=== PATIENT | male | born 1940 | race Caucasian/White ===

== ENCOUNTER 2018-02-28 03:06 | Observation (INO) | payer MEDICARE ==
[2018-02-28] VITALS (14 sets, daily range): BP systolic 137–184; BP diastolic 65–108; PULSE 62–81; RESP 16–20; TEMP 97.4–97.9; O2SAT 94–100
[~2018-02-28] VITALS: Ht 182.9 cm; Wt 84.1 kg
--- NOTE | 2018-02-28 03:29 | PD ---
HPI Chief Complaint: Chest Pain Time Seen by Provider: 03:09 Travel History International Travel<30 days: No Contact w/Intl Traveler<30days: No Traveled to known affect area: No History of Present Illness HPI Patient is a 78-year-old male on vacation in [facility] from [facility] patient awoke tonight nauseous vomiting chest pressure he says I do not have pain I does have chest pressure and vomiting nausea paramedics found him to be very hypertensive systolic over 200 they gave him sublingual nitro and Zofran which relieved his vomiting symptoms as well as brought his pressure down on arrival he is 180/90 in our ER. He denies chest pain again but says chest pressure which right now is much less than. He took one baby aspirin today which is his normal dose he takes lisinopril for blood pressure in the ER his complaint is low substernal chest pressure nausea all began less than an hour ago on awakening from sleep. He denies viral syndrome he went to bed feeling fine he did not have any complaints he did have a heavy meal of spicy ribs and excessive food prior to going to sleep he reports about 3 hours prior to sleep. PFSH Past Medical History High Cholesterol: Yes GERD: Yes Hypertension: Yes Medical other: Yes (bph ) Past Surgical History Tonsillectomy: Yes Other Surgery: Yes (vasectomy) Social History Alcohol Use: Yes (daily) Tobacco Use: No Substance Use: No Allergies-Medications (Allergen,Severity, Reaction): Coded Allergies: No Known Allergies (Unverified , 02/28/18) Reported Meds & Prescriptions Reported Meds & Active Scripts Active Reported Gas-X Ultra Strength (Simethicone) 180 Mg Cap 125 Mg PO DAILY PRN Aspirin 81 Mg Chew 81 Mg CHEW DAILY Prilosec (Omeprazole Magnesium) 20 Mg Tab Aleve Arthritis (Naproxen Sodium) 220 Mg Tab 220 Mg PO DAILY Multi-Vitamin Daily (Multiple Vitamin) 1 Tab Tab 1 Tab PO DAILY Tamsulosin (Tamsulosin HCl) 0.4 Mg Cap 0.4 Mg HS Dutasteride 0.5 Mg Cap 0.5 Mg PO DAILY Lovastatin 40 Mg Tab 40 Mg PO DAILY Atenolol 25 Mg Tab 25 Mg PO BID Lisinopril 10 Mg Tab 15 Mg PO DAILY Review of Systems Except as stated in HPI: all other systems reviewed are Neg Physical Exam Narrative GENERAL: pt slightly diaphoretic SKIN: Warm and dry. HEAD: Atraumatic. Normocephalic. EYES: Pupils equal and round. No scleral icterus. No injection or drainage. ENT: No nasal bleeding or discharge. Mucous membranes pink and moist. NECK: Trachea midline. No JVD. CARDIOVASCULAR: Regular rate and rhythm. RESPIRATORY: No accessory muscle use. Clear to auscultation. Breath sounds equal bilaterally. GASTROINTESTINAL: Abdomen soft, non-tender, nondistended. Hepatic and splenic margins not palpable. MUSCULOSKELETAL: Extremities without clubbing, cyanosis, or edema. No obvious deformities. NEUROLOGICAL: Awake and alert. No obvious cranial nerve deficits. Motor grossly within normal limits. Five out of 5 muscle strength in the arms and legs. Normal speech. PSYCHIATRIC: Appropriate mood and affect; insight and judgment normal. Data Data Last Documented VS Vital Signs Date Time Temp Pulse Resp B/P (MAP) Pulse Ox O2 Delivery O2 Flow Rate FiO2 02/28/18 04:45 62 18 184/84 (117) 98 Nasal Cannula 2.00 02/28/18 03:10 97.9 Orders Orders Complete Blood Count With Diff (02/28/18 03:17) Comprehensive Metabolic Panel (02/28/18 03:17) Ckmb (Isoenzyme) Profile (02/28/18 03:17) Troponin I (02/28/18 03:17) Lipase (02/28/18 03:17) Chest, Single Ap (02/28/18 03:17) Aspirin Chew (Aspirin Chew) (02/28/18 03:30) Nitroglycerin 2% Oint (Nitroglycerin 2% (02/28/18 03:30) Metoprolol Tartrate Inj (Lopressor Inj) (02/28/18 03:30) Pantoprazole Inj (Protonix Inj) (02/28/18 03:30) Ondansetron Inj (Zofran Inj) (02/28/18 03:30) Metoclopramide Inj (Reglan Inj) (02/28/18 04:45) Morphine Inj (Morphine Inj) (02/28/18 05:00) Admit Order (Ed Use Only) (02/28/18 05:05) Place In Observation (02/28/18 05:06) Activity Bed Rest With Brp (02/28/18 05:06) Vital Signs (Adult) Q4H (02/28/18 05:06) Cardiac Rhythm .As Directed (02/28/18 05:06) Notify Dr: Other .PRN (02/28/18 05:06) Notify Dr. Parameters (02/28/18 05:06) Resp Oxygen Nasal Cannula (02/28/18 ) Ckmb (Isoenzyme) Profile (02/28/18 05:06) Ckmb (Isoenzyme) Profile (02/28/18 08:06) Troponin I (02/28/18 05:06) Troponin I (02/28/18 08:06) Electrocardiogram (02/28/18 05:06) Electrocardiogram (02/28/18 08:06) ^ Obtain (02/28/18 05:06) Sodium Chloride 0.9% Flush (Ns Flush) (02/28/18 05:15) Sodium Chloride 0.9% Flush (Ns Flush) (02/28/18 09:00) Digital Production Artist / Telemetry [email or web address] (02/28/18 05:06) Labs Laboratory Tests Test 02/28/18 03:32 White Blood Count 8.0 TH/MM3 Red Blood Count 3.81 MIL/MM3 Hemoglobin 13.1 GM/DL Hematocrit 37.4 % Mean Corpuscular Volume 98.1 FL Mean Corpuscular Hemoglobin 34.3 PG Mean Corpuscular Hemoglobin Concent 35.0 % Red Cell Distribution Width 14.4 % Platelet Count 172 TH/MM3 Mean Platelet Volume 8.1 FL Neutrophils (%) (Auto) 75.7 % Lymphocytes (%) (Auto) 13.9 % Monocytes (%) (Auto) 8.6 % Eosinophils (%) (Auto) 1.3 % Basophils (%) (Auto) 0.5 % Neutrophils # (Auto) 6.0 TH/MM3 Lymphocytes # (Auto) 1.1 TH/MM3 Monocytes # (Auto) 0.7 TH/MM3 Eosinophils # (Auto) 0.1 TH/MM3 Basophils # (Auto) 0.0 TH/MM3 CBC Comment DIFF FINAL Differential Comment Blood Urea Nitrogen 25 MG/DL Creatinine 1.12 MG/DL Random Glucose 90 MG/DL Total Protein 6.7 GM/DL Albumin 3.5 GM/DL Calcium Level 8.2 MG/DL Alkaline Phosphatase 63 U/L Aspartate Amino Transf (AST/SGOT) 34 U/L Alanine Aminotransferase (ALT/SGPT) 30 U/L Total Bilirubin 0.4 MG/DL Sodium Level 141 MEQ/L Potassium Level 4.2 MEQ/L Chloride Level 109 MEQ/L Carbon Dioxide Level 25.2 MEQ/L Anion Gap 7 MEQ/L Estimat Glomerular Filtration Rate 64 ML/MIN Total Creatine Kinase 86 U/L Troponin I LESS THAN 0.02 NG/ML Lipase 182 U/L MDM Medical Decision Making Medical Screen Exam Complete: Yes Emergency Medical Condition: Yes Interpretation(s) EKG NSR 64 bpm Differential Diagnosis CP from GERD and or Ischemia or PNA or Bronchitis costochondritis , other Narrative Course pt has Trop negative and EKG normal rate 64 pt is HTN but after Lopressor and nitro paste and and then morphine for vasodilation pt BP normal to 124/65 and pain is much lessened, and pt admitted to for serial trop and Stress test in AM Diagnosis Primary Impression: Chest pain Qualified Codes: R07.9 - Chest pain, unspecified Patient Instructions: Chest Pain (ED), General Instructions Gil House MD Feb 28, 2018 03:29
[2018-02-28] MEDS ORDERED: NITROGLYCERIN 2% OINT 1 GM PACKET TOPICAL ONE (03:30)
[2018-02-28] MEDS ORDERED: PANTOPRAZOLE SODIUM 40 MG VIAL IV PUSH ONE (03:30)
[2018-02-28] MEDS ORDERED: ASPIRIN 81 MG CHEW TAB CHEW ONE (03:30)
[2018-02-28] MEDS ORDERED: METOPROLOL TARTRATE 5 MG/5 ML VIAL IV PUSH ONE (03:30)
[2018-02-28] MEDS ORDERED: ONDANSETRON HCL 4 MG/2 ML VIAL IV PUSH ONE (03:30)
[2018-02-28] MEDS ORDERED: ATEN25TA PO (03:35)
[2018-02-28] MEDS ORDERED: ALEV220T14 PO (03:35)
[2018-02-28] MEDS ORDERED: GAS-CAP3 PO (03:35)
[2018-02-28] MEDS ORDERED: MULT-65 PO (03:35)
[2018-02-28] MEDS ORDERED: DUTA1CAP2 PO (03:35)
[2018-02-28] MEDS ORDERED: TAMS0.4C4 (03:35)
[2018-02-28] MEDS ORDERED: ASPI-516 CHEW (03:35)
[2018-02-28] MEDS ORDERED: PRIL20TA2 (03:35)
[2018-02-28] MEDS ORDERED: LOVA40TA PO (03:35)
[2018-02-28] MEDS ORDERED: LISI10TA3 PO (03:35)
--- NOTE | 2018-02-28 03:58 | RADRPT ---
EXAM DATE/TIME: 02/28/2018 03:24 [facility] COMPARISON: No previous studies available for comparison. INDICATIONS : Chest pressure, vomiting for 24 hours MEDICAL HISTORY : None. SURGICAL HISTORY : None. ENCOUNTER: Initial ACUITY: 1 day PAIN SCORE: 0/10 LOCATION: Bilateral chest FINDINGS: There is mild left base atelectasis. Right lung clear. No pleural effusion or pneumothorax. Heart siz e within normal limits. CONCLUSION: Mild left base atelectasis. Fabricio Bucio MD on February 28, 2018 at 3:56 Board Certified Radiologist. This report was verified electronically.
[2018-02-28 04:11] LABS: BASOPHIL % 0.5 % (0.0-2.0); EOSINOPHIL # 0.1 TH/MM3 (0-0.4); EOSINOPHIL % 1.3 % (0.0-4.0); HEMATOCRIT 37.4 % (39.0-51.0); HEMOGLOBIN 13.1 GM/DL (13.0-17.0); LYMPH % 13.9 % (9.0-44.0); LYMPHOCYTE # 1.1 TH/MM3 (1.0-4.8); MEAN CELL VOLUME 98.1 FL (80.0-100.0); MEAN CORPUSCULAR HEMOGLOBIN 34.3 PG (27.0-34.0); MEAN PLATELET VOLUME 8.1 FL (7.0-11.0); MONO % 8.6 % (0.0-8.0); MONOCYTE # 0.7 TH/MM3 (0-0.9); NEUT % 75.7 % (16.0-70.0); PLATELET COUNT 172 TH/MM3 (150-450); RED BLOOD COUNT 3.81 MIL/MM3 (4.50-5.90); RED CELL DISTRIBUTION WIDTH 14.4 % (11.6-17.2)
[2018-02-28 04:30] LABS: ALBUMIN 3.5 GM/DL (3.4-5.0); ALKALINE PHOSPHATASE 63 U/L (45-117); ALT (GPT) 30 U/L (12-78); AST (GOT) 34 U/L (15-37); BICARBONATE 25.2 MEQ/L (21.0-32.0); BLOOD UREA NITROGEN 25 MG/DL (7-18); CALCIUM 8.2 MG/DL (8.5-10.1); CHLORIDE 109 MEQ/L (98-107); CREATININE 1.12 MG/DL (0.60-1.30); GLOMERULAR FILTRATION RATE 64 ML/MIN (>89); GLUCOSE,RANDOM 90 MG/DL (74-106); SODIUM (NA) 141 MEQ/L (136-145); TOTAL BILIRUBIN ADULT 0.4 MG/DL (0.2-1.0); TOTAL PROTEIN 6.7 GM/DL (6.4-8.2); TROPONIN I LESS THAN 0.02 NG/ML (0.02-0.05)
[2018-02-28] MEDS ORDERED: METOCLOPRAMIDE INJ 10 MG in SODIUM CHLORIDE 0.9% INJ 50 ML IV ONE (04:45)
[2018-02-28] MEDS ORDERED: MORPHINE SULFATE 4 MG/ML INJ IV PUSH ONE (05:00)
[2018-02-28] MEDS ORDERED: SODIUM CHLORIDE 0.9% FLUSH 10 ML FLUSH IV FLUSH PRN (05:15)
[2018-02-28 07:24] LABS: TROPONIN I LESS THAN 0.02 NG/ML (0.02-0.05)
[2018-02-28] MEDS ORDERED: SODIUM CHLORIDE 0.9% FLUSH 10 ML FLUSH IV FLUSH SCH (09:00)
[2018-02-28] MEDS ORDERED: PRAVASTATIN SOD 40 MG TAB PO SCH (09:00)
[2018-02-28] MEDS ORDERED: LISINOPRIL 5 MG TAB PO SCH (09:00)
[2018-02-28] MEDS ORDERED: MULTIVITAMIN TAB PO SCH (09:00)
[2018-02-28] MEDS ORDERED: FINASTERIDE 5 MG TAB PO SCH (09:00)
[2018-02-28] MEDS ORDERED: ATENOLOL 25 MG TAB PO SCH (09:00)
--- NOTE | 2018-02-28 09:37 | HHI.HP ---
HPI Primary Care Physician Unknown Chief Complaint Chest pain History of Present Illness This is a 78-year-old male that presents to ED with history of hypertension and hyperlipidemia to be evaluated for chest discomfort that began around 2:00 in the morning. States it woke him up. Was a pressure in the center of his chest and was nauseous. Had 2 episodes of emesis and after that he started to feel better. He states the discomfort will had essentially resolved by the time EVAC had arrived. Denies being short of breath or diaphoretic. States had symptoms like this by 10 years ago and was not found to be related to his heart. Denies history of coronary disease. Currently denies chest discomforts. Review of Systems General: Patient denies fevers, chills, and recent travel. HEENT: Patient denies headache, sore throat, difficulty swallowing. Cardiovascular: Has the chest discomfort as mentioned above. Denies sensation of heart beating rapidly or irregularly. No syncope. Denies diaphoresis. Respiratory: Denies shortness of breath or inspirational chest discomfort. Denies coughing wheezing or hemoptysis. GI: He was nauseous with 2 episodes of nonbloody non-bilious emesis. Patient denies constipation, diarrhea, abdominal pain, bloody stools. Musculoskeletal: Chronic back pain. Patient denies joint pain or edema. Denies calf pain or edema. Neurovascular: Patient denies numbness, tingling, weakness in extremities. Denies headache. Endocrine: Denies polyuria and polydipsia. Hematologic: Denies easy bruising. Skin: Denies rash or itching. Past Family Social History Allergies: Coded Allergies: No Known Allergies (Unverified , 02/28/18) Past Medical History Hypertension, hyperlipidemia, chronic back pain. Past tobacco abuse quit 1985. Denies diabetes and known CAD. Past Surgical History Vasectomy and tonsillectomy. Reported Medications Reported Meds & Active Scripts Active Reported Gas-X Ultra Strength (Simethicone) 180 Mg Cap 125 Mg PO DAILY PRN Aspirin 81 Mg Chew 81 Mg CHEW DAILY Prilosec (Omeprazole Magnesium) 20 Mg Tab Aleve Arthritis (Naproxen Sodium) 220 Mg Tab 220 Mg PO DAILY Multi-Vitamin Daily (Multiple Vitamin) 1 Tab Tab 1 Tab PO DAILY Tamsulosin (Tamsulosin HCl) 0.4 Mg Cap 0.4 Mg HS Dutasteride 0.5 Mg Cap 0.5 Mg PO DAILY Lovastatin 40 Mg Tab 40 Mg PO DAILY Atenolol 25 Mg Tab 25 Mg PO BID Lisinopril 10 Mg Tab 15 Mg PO DAILY Active Ordered Medications Current Medications Medications (Trade) Dose Ordered Sig/Iglesia Route Start Time Stop Time Status Last Admin (NS Flush) 2 ml UNSCH PRN IV FLUSH 02/28/18 05:15 (NS Flush) 2 ml BID IV FLUSH 02/28/18 09:00 (Tenormin) 25 mg BID PO 02/28/18 09:00 (Prinivil) 15 mg DAILY PO 02/28/18 09:00 (Pravachol) 40 mg DAILY PO 02/28/18 09:00 (Flomax) 0.4 mg HS PO 02/28/18 21:00 (Proscar) 5 mg DAILY PO 02/28/18 09:00 (Theragran) 1 tab DAILY PO 02/28/18 09:00 Family History His father passed with age 65 of an OH. His mother at age 63 of an OH. Social History Quit smoking 1985. Has occasional alcohol. Denies illicit drug use. Physical Exam Vital Signs Vital Signs Date Time Temp Pulse Resp B/P (MAP) Pulse Ox O2 Delivery O2 Flow Rate FiO2 02/28/18 08:46 81 17 137/66 (89) 100 Room Air 02/28/18 05:42 66 18 184/84 (117) 98 Nasal Cannula 2.00 02/28/18 05:15 64 20 170/108 (128) 98 Nasal Cannula 2.00 02/28/18 05:13 97 Nasal Cannula 2.00 02/28/18 05:10 18 02/28/18 04:45 62 18 184/84 (117) 98 Nasal Cannula 2.00 02/28/18 04:15 62 18 170/82 (111) 97 Nasal Cannula 2.00 02/28/18 04:00 62 18 167/78 (107) 97 Nasal Cannula 02/28/18 03:45 62 18 174/80 (111) 97 Nasal Cannula 02/28/18 03:23 67 16 180/93 (122) 96 Nasal Cannula 2.00 02/28/18 03:10 97.9 63 16 180/83 (115) 96 Physical Exam GENERAL: This is a well-nourished, well-developed patient, in no apparent distress. Patient speaks in clear complete sentences. Patient is pleasant. HEENT: Head is atraumatic and normocephalic. Neck is supple without lymphadenopathy and trachea is midline. No JVD or carotid bruits. CARDIOVASCULAR: Regular rate and rhythm without murmurs, gallops, or rubs. RESPIRATORY: Clear to auscultation. Breath sounds equal bilaterally. No wheezes , rales, or rhonchi. Chest wall is nontender. No use of accessory muscles. GASTROINTESTINAL: Abdomen is nontender, nondistended. Abdomen soft. No obvious pulsatile mass or bruit. No CVA tenderness. Strong femoral pulses bilaterally. Normal bowel sounds in all quadrants. MUSCULOSKELETAL: Patient is moving upper and lower extremities freely. No calf tenderness or edema, no Homans sign. Strong pulses in upper and lower extremities. NEUROLOGICAL: Patient is alert and oriented. Cranial nerves 2-12 are grossly intact. No focal deficits and speech is clear. SKIN: No rash and turgor is normal. Laboratory Laboratory Tests Test 02/28/18 03:32 02/28/18 06:30 White Blood Count 8.0 Red Blood Count 3.81 Hemoglobin 13.1 Hematocrit 37.4 Mean Corpuscular Volume 98.1 Mean Corpuscular Hemoglobin 34.3 Mean Corpuscular Hemoglobin Concent 35.0 Red Cell Distribution Width 14.4 Platelet Count 172 Mean Platelet Volume 8.1 Neutrophils (%) (Auto) 75.7 Lymphocytes (%) (Auto) 13.9 Monocytes (%) (Auto) 8.6 Eosinophils (%) (Auto) 1.3 Basophils (%) (Auto) 0.5 Neutrophils # (Auto) 6.0 Lymphocytes # (Auto) 1.1 Monocytes # (Auto) 0.7 Eosinophils # (Auto) 0.1 Basophils # (Auto) 0.0 CBC Comment DIFF FINAL Differential Comment Blood Urea Nitrogen 25 Creatinine 1.12 Random Glucose 90 Total Protein 6.7 Albumin 3.5 Calcium Level 8.2 Alkaline Phosphatase 63 Aspartate Amino Transf (AST/SGOT) 34 Alanine Aminotransferase (ALT/SGPT) 30 Total Bilirubin 0.4 Sodium Level 141 Potassium Level 4.2 Chloride Level 109 Carbon Dioxide Level 25.2 Anion Gap 7 Estimat Glomerular Filtration Rate 64 Total Creatine Kinase 86 83 Troponin I LESS THAN 0.02 LESS THAN 0.02 Lipase 182 Result Diagram: 02/28/18 0332 02/28/18 033 Imaging Last 48 hours Impressions Chest X-Ray 02/28/18 0317 Signed Impressions: Service Date/Time: February 03:24 - CONCLUSION: Mild left base atelectasis. MD Rosangela Triana VTE Risk Assessment Rosangela VTE Risk Assessment: Mod/High Risk (score >= 2) Caprini Risk Assessment Model Point Value = 1 Point Value = 2 Point Value = 3 Point Value = 5 Age 41-60 Minor surgery BMI > 25 kg/m2 Swollen legs Varicose veins or History of unexplained or recurrent spontaneous Oral contraceptives or hormone replacement Sepsis (< 1 month) Serious lung disease, including pneumonia (< 1 month) Abnormal pulmonary function Acute myocardial infarction Congestive heart failure (< 1 month) History of inflammatory bowel disease Medical patient at bed rest Age 61-74 Arthroscopic surgery Major open surgery (> 45 min) Laparoscopic surgery (> 45 min) Malignancy Confined to bed (> 72 hours) Immobilizing plaster cast Central venous access Age >= 75 History of VTE Family history of VTE Factor V Leiden Prothrombin [id number] Lupus anticoagulant Anticardiolipin antibodies Elevated serum homocysteine Heparin-induced thrombocytopenia Other congenital or acquired thrombophilia Stroke (< 1 month) Elective arthroplasty Hip, pelvis, or leg fracture Acute spinal cord injury (< 1 month) Prophylaxis Regimen Total Risk Factor Score Risk Level Prophylaxis Regimen 0-1 Low Early ambulation 2 Moderate Order ONE of the following: *Sequential Compression Device (SCD) *Heparin 5000 units SQ BID 3-4 Higher Order ONE of the following medications: *Heparin 5000 units SQ TID *Enoxaparin/Lovenox 40 mg SQ daily (WT < 150 kg, CrCl > 30 mL/min) *Enoxaparin/Lovenox 30 mg SQ daily (WT < 150 kg, CrCl > 10-29 mL/min) *Enoxaparin/Lovenox 30 mg SQ BID (WT < 150 kg, CrCl > 30 mL/min) AND/OR *Sequential Compression Device (SCD) 5 or more Highest Order ONE of the following medications: *Heparin 5000 units SQ TID (Preferred with Epidurals) *Enoxaparin/Lovenox 40 mg SQ daily (WT < 150 kg, CrCl > 30 mL/min) *Enoxaparin/Lovenox 30 mg SQ daily (WT < 150 kg, CrCl > 10-29 mL/min) *Enoxaparin/Lovenox 30 mg SQ BID (WT < 150 kg, CrCl > 30 mL/min) AND *Sequential Compression Device (SCD) Assessment and Plan Assessment and Plan * Chest pain: Patient has had serial cardiac enzymes and EKGs for ruling out purposes. He was seen by Dr. Nick Benavides of cardiology in the [facility] and will undergo a Lexiscan. He will be discharged home if stress test is nonischemic with instructions to follow-up with PCP. Return to ED for interval issues. * Hypertension: Resume medication. * Hyperlipidemia: Resume medication. * Chronic back pain: Resume medication. Patient is stable at this time. He is agreeable to this plan. Luis Alfredo Naranjo Feb 28, 2018 09:37
--- NOTE | 2018-02-28 09:57 | EKG ---
Date Performed: 02/28/2018 Time Performed: 03:14:43 PTAGE: 78 years EKG: Sinus rhythm NORMAL ECG NO PREVIOUS TRACING DOCTOR: Nick Benavides Interpretating Date/Time 02/28/2018 09:54:51
--- NOTE | 2018-02-28 10:02 | EKG ---
Date Performed: 02/28/2018 Time Performed: 06:24:57 PTAGE: 78 years EKG: Sinus rhythm MINIMAL ST DEPRESSION BORDERLINE ECG NO PREVIOUS TRACING DOCTOR: Nick Benavides Interpretating Date/Time 02/28/2018 10:00:40
[2018-02-28 10:43] LABS: TROPONIN I LESS THAN 0.02 NG/ML (0.02-0.05)
[2018-02-28] MEDS ORDERED: REGADENOSON INJ 0.4 MG/5 ML SYR ONE (13:21)
--- NOTE | 2018-02-28 14:49 | RADRPT ---
EXAM DATE/TIME: 02/28/2018 12:52 [facility] COMPARISON: No previous studies available for comparison. INDICATIONS : Chest pain. Angina. DOSE: 26.1 mCi Tc99m Myoview at stress. 8.8 mCi Tc99m Myoview at rest. 0.4 mg Lexiscan STRESS SYMPTOMS: Shortness of breath and flush. EJECTION FRACTION: 64% MEDICAL HISTORY : Hypercholesterolemia. Hypertension. SURGICAL HISTORY : Tonsillectomy. Vasectomy. ENCOUNTER: Initial ACUITY: 1 day PAIN SCALE: 0/10 LOCATION: Bilateral chest TECHNIQUE: The patient underwent pharmacologic stress with infusion of prescribed dose. Continuous ECG tracing was monitored during stress. Gated SPECT imaging was performed after stress and conventional SPECT i maging was performed at rest. The examination was performed on a SPECT/CT scanner, both attenuation and non-corrected datasets were reviewed. FINDINGS: DISTRIBUTION: The maximum perfused segment at stress is in the lateral wall. PERFUSION STUDY: The pattern of perfusion at stress is within normal limits. GATED STUDY: There is intact wall motion and thickening without hypokinetic or dyskinetic segments. CONCLUSION: 1. Normal exam 2. No evidence of fixed or reversible perfusion abnormalities. 3. Normal wall motion and ejection fraction. RISK CATEGORY: Low (<1% Annual Mortality Rate) Jacinto Brewster MD on February 28, 2018 at 14:43 Board Certified Radiologist. This report was verified electronically.
--- NOTE | 2018-02-28 14:57 | HHI.DCPOC ---
Discharge Care Plan Diagnosis: (1) Chest pain (2) Hypertension (3) Hyperlipidemia Goals to Promote Your Health * To prevent worsening of your condition and complications * To maintain your health at the optimal level Directions to Meet Your Goals Take your medications as prescribed Follow your dietary instruction Follow activity as directed Keep your appointments as scheduled Take your immunizations and boosters as scheduled If your symptoms worsen call your PCP, if no PCP go to Urgent Care Center or Emergency Room Smoking is Dangerous to Your Health. Avoid second hand smoke Call the 24-hour hour crisis hotline for domestic abuse at Luis Alfredo Naranjo Feb 28, 2018 14:57
[2018-02-28] MEDS ORDERED: TAMSULOSIN HCL 0.4 MG CAP PO SCH (21:00)
--- NOTE | 2018-03-02 11:36 | TR ---
Date Performed: 02/28/2018 Time Performed: 13:17:10 DOCTOR: Margarito Staton DRUG LIST: CLINICAL HISTORY: ANGINA REASON FOR TEST: Angina REASON FOR ENDING: OBSERVATION: CONCLUSION: COMMENTS: Lexiscan stress test was performed under standard four minute protocol. Radionuclide was injected one minute prior to ending the test. No electrocardiographic abormalities were present t o suggest ischemia. Nuclear imaging and interpretation are pending.
== END 2018-02-28 18:45 | disposition home or self-care (01) ==
LOC: NEPE 03:06 → NEDA 05:06 → NEPHCDU 11:56
PROVIDERS: ADMIT Internal Medicine Cardiovascular Disease; ATTEND Internal Medicine Cardiovascular Disease
DX: R07.89 Other chest pain (principal); I10 Essential (primary) hypertension; E78.5 Hyperlipidemia, unspecified; R11.2 Nausea with vomiting, unspecified; I20.9 Angina pectoris, unspecified; E78.00 Pure hypercholesterolemia, unspecified; K21.9 Gastro-esophageal reflux disease without esophagitis; N40.0 Benign prostatic hyperplasia without lower urinary tract symptoms; M54.9 Dorsalgia, unspecified; G89.29 Other chronic pain; Z87.891 Personal history of nicotine dependence
CPT/HCPCS: 71045; 78452; 80053; 82550; 83690; 84484; 85025; 93005; 93017; 96365; 96375; 99285; A9502; C9113; G0378; J2270; J2405; J2765; J2785